=== PATIENT | female | born 1990 | race Caucasian/White ===

== ENCOUNTER 2024-08-06 18:23 | Emergency (ER) | payer MEDICAID ==
[~2024-08-06] VITALS: Ht 162.6 cm; Wt 44.0 kg
[2024-08-06 19:03] VITALS: BP 100/87; PULSE 78; RESP 16; TEMP 98; O2SAT 100
== END 2024-08-06 19:11 | disposition home or self-care (01) ==
LOC: ER 18:25
DX: F41.9 Anxiety disorder, unspecified (principal); Z88.0 Allergy status to penicillin
CPT/HCPCS: 99281

== ENCOUNTER 2024-08-18 04:22 | Emergency (ER) | payer MEDICAID ==
[~2024-08-18] VITALS: Ht 162.6 cm; Wt 56.8 kg
[2024-08-18 04:29] VITALS: BP 127/69; PULSE 76; RESP 18; O2SAT 98
[2024-08-18] MEDS: acetaminophen 325mg tablet PO ONE (04:45)
[2024-08-18 05:05] VITALS: TEMP 98.2
== END 2024-08-18 05:06 | disposition home or self-care (01) ==
LOC: ER 04:23
DX: M79.672 Pain in left foot (principal); M79.671 Pain in right foot; Z88.0 Allergy status to penicillin
CPT/HCPCS: 99282

== ENCOUNTER 2024-08-26 00:20 | Emergency (ER) | payer MEDICAID | END 2024-08-26 00:48 | disposition left against medical advice (07) | LOC: ER 00:22 | DX: R05.9 Cough, unspecified (principal); R50.9 Fever, unspecified; Z53.21 Procedure and treatment not carried out due to patient leaving prior to being seen by health care provider; Z88.0 Allergy status to penicillin ==

== ENCOUNTER 2024-08-26 04:59 | Emergency (ER) | payer MEDICAID | END 2024-08-26 05:16 | disposition left against medical advice (07) | LOC: ER 05:00 | DX: R05.9 Cough, unspecified (principal); Z53.21 Procedure and treatment not carried out due to patient leaving prior to being seen by health care provider ==